=== PATIENT | female | born 1985 | race Caucasian/White ===

== ENCOUNTER 2021-06-26 10:37 | Emergency (ER) | payer SELFPAY ==
[~2021-06-26] VITALS: Ht 165.1 cm; Wt 197.0 kg
[2021-06-26 10:49] VITALS: BP 166/94
--- NOTE | 2021-06-26 12:14 | PHYS DOC ---
Past History Past Surgical History: , Other Additional Past Surgical Histo: ankle (JAN DOWNS APRN) Alcohol Use: None (JAN DOWNS APRN) General Adult EDM: Chief Complaint: COUGH HPI: HPI: Patient is a 36-year-old female presents with right eye redness, tenderness to outside of eyelid, light sensitivity, and watering since yesterday. Patient states "in the afternoon I started feeling like it was sensitive to the sun and looked a little red and then this morning eyelid felt tender" patient denies injury or trauma. Denies floaters. Denies change in visual acuity. Denies discharge. Patient states "I have recently had runny nose, sneezing". (JAN DOWNS APRN) Review of Systems: Review of Systems: Constitutional: Denies fever or chills Eyes: Denies change in visual acuity. Reports redness, watering to right eye. Right eyelid is tender. HENT: Denies nasal congestion or sore throat Respiratory: Denies cough or shortness of breath Cardiovascular: Denies chest pain or edema GI: Denies abdominal pain, nausea, vomiting, bloody stools or diarrhea : Denies dysuria Musculoskeletal: Denies back pain or joint pain Integument: Denies rash Neurologic: Denies headache, focal weakness or sensory changes Endocrine: Denies polyuria or polydipsia Lymphatic: Denies swollen glands Psychiatric: Denies depression or anxiety (JAN DOWNS APRN) Physical Exam: PE: Constitutional: Well developed, well nourished, no acute distress, non-toxic appearance. [] HENT: Normocephalic, atraumatic, bilateral external ears normal, oropharynx moist, no oral exudates, nose normal. [] Eyes: PERRLA, EOMI, conjunctiva red, no discharge, photophobia Neck: Normal range of motion, no tenderness, supple, no stridor. [] Cardiovascular:Heart rate regular rhythm, no murmur [] Lungs & Thorax: Bilateral breath sounds clear to auscultation [] Abdomen: Bowel sounds normal, soft, no tenderness, no masses, no pulsatile masses. [] Skin: Warm, dry, no erythema, no rash. [] Back: No tenderness, no CVA tenderness. [] Extremities: No tenderness, no cyanosis, no clubbing, ROM intact, no edema. [] Neurologic: Alert and oriented X 3, normal motor function, normal sensory function, no focal deficits noted. [] Psychologic: Affect normal, judgement normal, mood normal. [] (JAN DOWNS APRN) Current Patient Data: Vital Signs: Vital Signs Date Time Temp Pulse Resp B/P (MAP) Pulse Ox O2 Delivery O2 Flow Rate FiO2 06/26/21 10:49 98.0 72 16 166/94 98 Room Air (JAN DOWNS APRN) EKG: EKG: [] (JAN DOWNS APRN) Radiology/Procedures: Radiology/Procedures: [] (JAN DOWNS APRN) Heart Score: C/O Chest Pain: No Risk Factors: Risk Factors: DM, Current or recent (<one month) smoker, HTN, HLP, family h istory of CAD, obesity. Risk Scores: Score 0 - 3: 2.5% MACE over next 6 weeks - Discharge Home Score 4 - 6: 20.3% MACE over next 6 weeks - Admit for Clinical Observation Score 7 - 10: 72.7% MACE over next 6 weeks - Early Invasive Strategies (JAN DOWNS APRN) Course & Med Decision Making: Course & Med Decision Making Pertinent Labs and Imaging studies reviewed. (See chart for details) [] 36-year-old female presents with right eye redness, photophobia, tenderness to eyelid, and watering since yesterday. Patient denies trauma or injury. (JAN DOWNS APRN) Course & Med Decision Making I was the Attending physician on the above date of service of this patient. This patient was evaluated, examined, treated, and dispositioned from the emergency department by the mid-level practitioner. Although I was working at the time , no assistance was requested. Electronically signed, Codi Fan DO (CODI FAN DO) Rosamaria Disclaimer: Rosamaria Disclaimer: This electronic medical record was generated, in whole or in part, using a voice recognition dictation system. (JAN DOWNS APRN) Departure Departure: Impression: Primary Impression: Anterior uveitis Disposition: HOME / SELF CARE / HOMELESS Condition: STABLE Referrals: PCP,NO (PCP) Patient Instructions: Uveitis Additional Instructions: You were seen in the emergency room for right eye redness, light sensitivity, eyelid tenderness. If pain continues follow-up with your PCP. I would suggest following up with an it sales consultant as well. If you have an increase in pain, change in visual acuity please return to the emergency room. EMERGENCY DEPARTMENT GENERAL DISCHARGE INSTRUCTIONS Thank you for coming to [facility] (ED) today and trusting us with you care. We trust that you had a positivie experience in our Emergency Department. If you wish to speak to the department management, you may call the director at [phone]. YOUR FOLLOW UP INSTRUCTIONS ARE FOLLOWS: 1. Do you have a private Doctor? If you do not have a private doctor, please ask for a resource list of physicians or clinics that may be able to assist you with follow up care. 2. The Emergency Physician has interpreted your x-rays. The X-Ray specialist will also review them. If there is a change in the findings, you will be notified in 48 hours when at all possible. 3. A lab test or culture has been done, your results will be reviewed and you will be notified if you need a change in treatment. ADDITIONAL INSTRUCTIONS AND INFORMATION: 1. Your care today has been supervised by a physician who is specially trained in emergency care. Many problems require more than one evaluation for a complete diagnosis and treatment. We recommend that you schedule your follow up appointment as recommended to ensure complete treatment of you illness or injury. If you are unable to obtain follow up care and continue to have a problem, or if your condition worsens, we recommend that you return to the ED. 2. We are not able to safely determine your condition over the phone nor are we able to give sound medical advice over the phone. For these safety reasons, if you call for medical advice we will ask you to come to the ED for further evaluation. 3. If you have any questions regarding these discharge instructions please call the ED at [phone]. SAFETY INFORMATION: In the interest of safety, wellness, and injury prevention; we encourage you to wear your sealbelt, if you smoke; quite smoking, and we encourage family to use a protective helmet for bicycling and other sporting events that present an increased risk for head injury. IF YOUR SYMPTOMS WORSEN OR NEW SYMPTOMS DEVELOP, OR YOU HAVE CONCERNS ABOUT YOUR CONDITION; OR IF YOUR CONDITION WORSENS WHILE YOU ARE WAITING FOR YOUR FOLLOW UP APPOINTMENT; EITHER CONTACT YOUR PRIMARY CARE DOCTOR, THE PHYSICIAN WHOSE NAME AND NUMBER YOU WERE GIVEN, OR RETURN TO THE ED IMMEDIATELY. Scripts Polymyxin B Sulf/Trimethoprim (POLYMYXIN B-TMP EYE DROPS) 10 Ml Drops 1 DROP OD TID for uveitis for 7 Days, #10 ML 0 Refills Prov: JAN DOWNS APRN 06/26/21 JAN DOWNS APRN Jun 26, 2021 12:14 CODI FAN DO Jul 02, 2021 08:24
[2021-06-26] MEDS ORDERED: FLUORESCEIN 1MG EYE STRIP. OD ONE (12:15)
[2021-06-26] MEDS ORDERED: TETRACAINE 0.5% OPHTH SOLUTION 4ML BOTTLE. OD ONE (12:15)
[2021-06-26] MEDS ORDERED: POLY10DR3 OD (12:58)
== END 2021-06-26 13:02 | disposition home or self-care (01) ==
LOC: ER 11:09
DX: H20.9 Unspecified iridocyclitis (principal)
CPT/HCPCS: 99283

== ENCOUNTER 2021-08-01 12:23 | Emergency (ER) | payer SELFPAY ==
[~2021-08-01] VITALS: Ht 165.1 cm; Wt 198.2 kg
[~2021-08-01 12:23] MED LIST: POLY10DR3 OD
[2021-08-01] MEDS ORDERED: CEFU500T46 PO (13:14)
--- NOTE | 2021-08-01 13:15 | PHYS DOC ---
Past History Past Surgical History: , Other Additional Past Surgical Histo: ankle (KEVIN SYLVESTER) Alcohol Use: None (KEVIN SYLVESTER) General Adult EDM: Chief Complaint: LOWER EXT PAIN HPI: HPI: Patient is a 36 year old female who presents with bilateral lower extremity complaints. Patient states that 2 weeks ago, her right lower extremity was swollen, red and warm. She elevated her leg at night and began walking on her treadmill for half hour every day at that time. Today, she states her left lower extremity has done the same. The right lower extremity now has less swelling, however has a small area of firm notice with overlying "bruising." Patient is concerned that her weight is contributing to her current symptoms. Patient denies fever, chills, trauma and pain. Patient has no other complaints at this time. (KEVIN SYLVESTER) Review of Systems: Review of Systems: Constitutional: See HPI Respiratory: Denies cough or shortness of breath Cardiovascular: Denies chest pain or edema Musculoskeletal: Denies back pain or joint pain Integument: See HPI Neurologic: Denies headache, focal weakness or sensory changes (KEVIN SYLVESTER) Allergies: Allergies: Allergies Coded Allergies Type Severity Reaction Last Updated Verified Penicillins Allergy Unknown 06/26/21 Yes (KEVIN SYLVESTER) Physical Exam: PE: Constitutional: Obese, no acute distress, non-toxic appearance. Cardiovascular:Heart rate regular rhythm, no murmur. Lungs & Thorax: Bilateral breath sounds clear to auscultation. Skin: Left lower extremity has a 3 x 4 cm area of firm erythema without fluctuance. Right lower extremity has a large warm erythematous nonraised rash to the anterior side. Skin is otherwise warm, dry. Extremities: No tenderness, no cyanosis, no clubbing, ROM intact, trace edema bilateral lower extremities. No calf tenderness, no unilateral swelling, no posterior calf erythema. Neurologic: Alert and oriented x3, normal motor function, normal sensory function, no focal deficits noted. (KEVIN SYLVESTER) Current Patient Data: Vital Signs: Vital Signs Date Time Temp Pulse Resp B/P (MAP) Pulse Ox O2 Delivery O2 Flow Rate FiO2 08/01/21 12:33 98.6 92 16 188/98 (128) 98 Room Air (KEVIN SYLVESTER) Heart Score: C/O Chest Pain: No (KEVIN SYLVESTER) Course & Med Decision Making: Course & Med Decision Making Pertinent Labs and Imaging studies reviewed. (See chart for details) Patient is concerned that her symptoms may be due to her obesity or recent dietary and exercise changes. Patient expresses a desire to improve her overall health with diet and exercise. She states she is currently uninsured and does not have a primary care provider, but we discussed that a family doctor would be the best person to and aid her to treating her obesity and the comorbidities that may come with it. Today, she will be treated for cellulitis. She is also instructed to use compression socks when exercising to prevent excess swelling w hile ambulating for long period of time. Patient does have urticarial reaction to penicillins, however states that she has had cephalosporins in the past without reaction. Patient understands and is agreeable to discharge plan. (KEVIN SYLVESTER) Dragon Disclaimer: Dragon Disclaimer: This electronic medical record was generated, in whole or in part, using a voice recognition dictation system. (KEVIN SYLVESTER) Attending Co-Sign The patient was seen and interviewed as well as examined at the bedside. The chart was reviewed. The case was discussed. Agree with the plan of care. (NURYS AGUIRRE DO) Departure Departure: Impression: Primary Impression: Cellulitis of anterior lower leg Additional Impression: Elevated blood pressure reading Disposition: HOME / SELF CARE / HOMELESS Condition: STABLE Referrals: KRISHNA SANCHEZ MD,DEMETRIS PASCUAL MD, MD, RACHEL Patient Instructions: Cellulitis, [id number], Obesity, [id number] Additional Instructions: He will be treated today for soft tissue skin infection called cellulitis. If your symptoms do not improve, please follow-up with one of the primary care providers using the contact information provided to you today. These doctors can also address any chronic medical issues that you may have and assist you in your desired weight loss. If your symptoms worsen or you develop new symptoms such as fever, chills or discharge from the rash, please return to the emergency department. Scripts Cefuroxime Axetil (CEFUROXIME) 500 Mg Tablet 1 TAB PO BID for cellulitis for 7 Days, #14 TAB 0 Refills Take 1 tablet by mouth twice a day for 7 days. Please be sure to take full course of antibiotics. Prov: KEVIN SYLVESTER 08/01/21 KEVIN SYLVESTER Aug 01, 2021 13:15 NURYS AGUIRRE DO Aug 07, 2021 10:35
== END 2021-08-01 13:15 | disposition home or self-care (01) ==
LOC: ER 12:23
DX: L03.115 Cellulitis of right lower limb (principal); R03.0 Elevated blood-pressure reading, without diagnosis of hypertension; Z98.890 Other specified postprocedural states
CPT/HCPCS: 99283